=== PATIENT | male | born 1950 | race Two or more races ===

== ENCOUNTER 2021-08-29 11:07 | Inpatient (IN) | payer OTHER ==
[~2021-08-29] VITALS: Ht 182.9 cm; Wt 116.2 kg
[2021-08-29 13:30] LABS: Eosinophils # (auto) 0 10 ^3/uL (0-0.8); Hemoglobin 11.3 g/dL (13.5-17.5); White Blood Cell 5.2 10^3/uL (4.4-10.8)
[2021-08-29 13:31] LABS: Basophils # (auto) 0 10 ^3/uL (0-0.2); Basophils % (auto) 0.7 % (0.0-2.0); Hematocrit 35.4 % (41.0-53.0); Lymphocytes # (auto) 0.9 10 ^3/uL (0.4-5.4); Lymphocytes % (auto) 16.4 % (10.0-50.0); Mean Corpuscular Hemoglobin 24.3 pg (28.0-32.0); Mean Corpuscular Volume 75.9 fL (80.0-100.0); Monocytes # (auto) 0.4 10 ^3/uL (0-1.3); Monocytes % (auto) 8.2 % (0.0-12.0); Neutrophils # (auto) 3.9 10 ^3/uL (1.6-8.6); Neutrophils % (auto) 74.7 % (37.0-80.0); Nucleated Red Blood Cells % 0.1 %; Red Blood Cells 4.66 10^6/uL (4.5-5.90); Red Cell Distribution Width 16.9 % (11.8-14.3)
[2021-08-29 13:45] LABS: INR 1.13 (0.9-1.15); Partial Thromboplastin Time 27.8 sec (23.6-33.0)
[2021-08-29 13:46] LABS: Albumin 2.4 g/dL (3.4-5.0); Calcium 7.9 mg/dL (8.5-10.1); Potassium 3.6 mmol/L (3.5-5.1)
[2021-08-29 13:55] LABS: BUN/Creatinine Ratio 17.3; Bilirubin, Total 2.8 mg/dL (0.2-1.0); CRP High Sensitivity 11.1 mg/dL (< 0.3); Total Protein 7.6 g/dL (6.4-8.2)
[2021-08-29] MEDS ORDERED: MORPHINE SULFATE INJECTION 2 MG/ML SYRG IV PRN ×3 (17:45→19:00)
[2021-08-29] MEDS ORDERED: NITROGLYCERIN 0.4 MG SL TAB SL PRN ×2 (17:45→19:00)
[2021-08-29] MEDS ORDERED: DexAMETHasone SOD PHOS 10MG/1ML VIAL INJ IV ONE (18:15)
[2021-08-29] MEDS ORDERED: cefTRIAXone 1GM/50ML D5W 50 ML IV ONE (18:15)
[2021-08-29] MEDS ORDERED: AZITHROMYCIN 500MG/ 250ML 250 ML IV ONE (18:15)
[2021-08-29] MEDS ORDERED: ACETAMINOPHEN 500 MG TAB PO PRN (18:45)
[2021-08-29] MEDS ORDERED: hydrALAZINE HCL 20 MG/ML VL IV PRN (18:45)
[2021-08-29] MEDS ORDERED: REMDESIVIR PER PHARMACY 0 ML IV SCH (18:45)
[2021-08-29] MEDS ORDERED: PROMETHAZINE W/CODEINE 5 ML ORAL SYRUP PO PRN (19:00)
[2021-08-29] MEDS ORDERED: LORazepam 0.5 MG TAB PO PRN (19:00)
[2021-08-29] MEDS ORDERED: ALUM & MAG HYDROX-SIMETH LIQ(MAALOX) 30 ML PO PRN (19:00)
[2021-08-29] MEDS ORDERED: FAMOTIDINE (10MG/ML) 2ML VL IV ONE ×2 (19:00)
[2021-08-29] MEDS ORDERED: PROMETHAZINE W/CODEINE 5 ML ORAL SYRUP PO ONE (19:00)
[2021-08-29] MEDS ORDERED: ONDANSETRON HCL 4 MG/2 ML VIAL IV PRN (19:00)
[2021-08-29] MEDS ORDERED: HYDROcodone-ACET 5/325MG TAB PO PRN (19:00)
[2021-08-29] MEDS ORDERED: DOCUSATE SOD 100 MG CAP PO PRN (19:00)
[2021-08-29] MEDS ORDERED: ACETAMINOPHEN 325 MG TAB PO PRN (19:00)
[2021-08-29] MEDS: BUDESONIDE (INHALATION) 180 MCG IH IN SCH (19:14)
[2021-08-29] MEDS: ALBUTEROL SULF HFA 90MCG INH 200DOSE IN PRN (20:07)
[2021-08-29 20:15] VITALS: BP 133/79
[2021-08-29 20:30] VITALS: BP 133/79
[2021-08-29] MEDS ORDERED: REMDESIVIR 200 MG in NS 210ml LOADING DOSE ADULT IV ONE (20:30)
[2021-08-29 20:44] LABS: Thyroid Stimulating Hormone 0.58 uIU/mL (0.358-3.74)
[2021-08-29 20:56] VITALS: BP 127/68
[2021-08-29] MEDS ORDERED: FAMOTIDINE (10MG/ML) 2ML VL IV SCH (22:00)
[2021-08-29 22:14] VITALS: BP 133/79
[2021-08-29] MEDS: ATORVASTATIN 20 MG TAB PO SCH (22:25)
[2021-08-29] MEDS: POTASSIUM CHL 20 Meq TABLET PO SCH (22:25)
[2021-08-29] MEDS: ENOXAPARIN SOD 40 MG/0.4 ML SYRINGE SC SCH (22:26)
[2021-08-29] MEDS ORDERED: TERA5CAP42 PO (23:41)
[2021-08-29] MEDS ORDERED: OMEP-263 PO (23:41)
[2021-08-29] MEDS ORDERED: CARV12.544 PO (23:41)
[2021-08-29] MEDS ORDERED: MELA5TAB11 PO (23:41)
[2021-08-29] MEDS ORDERED: ASPI1TAB20 PO (23:41)
[2021-08-29] MEDS ORDERED: AMLO-496 PO (23:41)
[2021-08-30 05:53] VITALS: BP 119/69
[2021-08-30 06:03] LABS: Basophils # (auto) 0 10 ^3/uL (0-0.2); Eosinophils # (auto) 0 10 ^3/uL (0-0.8); Eosinophils % (auto) 0.2 % (0.0-7.0); Hemoglobin 10.8 g/dL (13.5-17.5); Mean Corpuscular Hemoglobin 23.9 pg (28.0-32.0); Red Blood Cells 4.51 10^6/uL (4.5-5.90); Red Cell Distribution Width 16.7 % (11.8-14.3); White Blood Cell 4.7 10^3/uL (4.4-10.8)
[2021-08-30] MEDS: FUROSEMIDE 20 MG/2 ML VIAL IV SCH ×2 (06:06→17:55)
[2021-08-30 06:23] LABS: INR 1.2 (0.9-1.15); Partial Thromboplastin Time 34.5 sec (23.6-33.0)
[2021-08-30 06:59] LABS: Basophils % (auto) 0.4 % (0.0-2.0); Hematocrit 34.3 % (41.0-53.0); Lymphocytes # (auto) 0.6 10 ^3/uL (0.4-5.4); Lymphocytes % (auto) 13.5 % (10.0-50.0); Mean Corpuscular Hgb Conc. 31.4 g/dL (32.0-36.0); Mean Corpuscular Volume 76.2 fL (80.0-100.0); Monocytes # (auto) 0.4 10 ^3/uL (0-1.3); Monocytes % (auto) 8.8 % (0.0-12.0); Neutrophils # (auto) 3.6 10 ^3/uL (1.6-8.6); Neutrophils % (auto) 77.1 % (37.0-80.0); Nucleated Red Blood Cells % 0.4 %
[2021-08-30] MEDS: BUDESONIDE (INHALATION) 180 MCG IH IN SCH ×2 (07:54→22:00)
[2021-08-30] MEDS: ALBUTEROL SULF HFA 90MCG INH 200DOSE IN PRN (07:54)
[2021-08-30 08:57] VITALS: BP 110/68
[2021-08-30] MEDS: ASPirin 81 mg TAB PO SCH (10:50)
[2021-08-30] MEDS: IVERMECTIN 3 MG TAB PO SCH (10:51)
[2021-08-30] MEDS: POTASSIUM CHL 20 Meq TABLET PO SCH ×2 (10:51→20:59)
[2021-08-30] MEDS: ZINC SULFATE 220mg CAP or TAB PO SCH (10:51)
[2021-08-30] MEDS: METOPROLOL SUCCINATE XL 50 MG TAB PO SCH (10:52)
[2021-08-30] MEDS: CHOLECALCIFEROL (VITD3) 2,000 UNIT CAP/TAB PO SCH (10:52)
[2021-08-30] MEDS: ASCORBIC ACID 1,000 MG TAB PO SCH (10:52)
[2021-08-30] MEDS: ENOXAPARIN SOD 40 MG/0.4 ML SYRINGE SC SCH ×2 (10:53→20:58)
[2021-08-30] MEDS: DexAMETHasone SOD PHOS 10MG/1ML VIAL INJ IV SCH (11:35)
[2021-08-30] MEDS: FAMOTIDINE (10MG/ML) 2ML VL IV SCH ×2 (11:35→20:59)
[2021-08-30] MEDS: AZITHROMYCIN 500MG/ 250ML 250 ML IV SCH (11:35)
[2021-08-30 13:00] VITALS: BP 105/60
[2021-08-30] MEDS ORDERED: VANCOMYCIN 1GM/250ML 250 ML IV ONE (13:30)
[2021-08-30] MEDS ORDERED: VANCOMYCIN PER PHARMACY 0 MG IV SCH (13:30)
[2021-08-30 13:44] LABS: Albumin 2.2 g/dL (3.4-5.0); Calcium 7.6 mg/dL (8.5-10.1)
[2021-08-30 14:28] LABS: BUN/Creatinine Ratio 23.7; Bilirubin, Total 2.6 mg/dL (0.2-1.0); Phosphorus 2.8 mg/dL (2.5-4.90); Total Protein 6.6 g/dL (6.4-8.2)
[2021-08-30] MEDS: REMDESIVIR 100mg 100 MG in SODIUM CHL 0.9% 230 ML IV SCH (16:29)
[2021-08-30 17:00] VITALS: BP 116/72
[2021-08-30] MEDS: TAMSULOSIN HYDROCHLORIDE 0.4 MG CAP PO SCH (17:55)
[2021-08-30 18:43] LABS: Urine Amorphous Crystal FEW /hpf (None Seen); Urine Bacteria NONE SEEN /hpf (None Seen); Urine Blood Negative /uL (Negative); Urine Mucus FEW (None Seen); Urine Specific Gravity 1.017 (1.001-1.035); Urine WBC 3 /hpf (0 - 3)
[2021-08-30 18:45] LABS: Alcohol, Urine < 3.0 mg/dL (0-10); Amphetamine Screen, Urine NEGATIVE (NEGATIVE); Barbiturate Scree,Urine NEGATIVE (NEGATIVE); Benzodiazephine Screen, Urine NEGATIVE (NEGATIVE); Cannabinoid Screen, Urine NEGATIVE (NEGATIVE); Cocaine Screen, Urine NEGATIVE (NEGATIVE); Opiate Scree,Urine POSITIVE (NEGATIVE); Phencyclidine Screen, Urine NEGATIVE (NEGATIVE)
[2021-08-30] MEDS: ATORVASTATIN 20 MG TAB PO SCH (20:58)
[2021-08-30 21:45] VITALS: BP 118/67
[2021-08-31] MEDS: VANCOMYCIN 1GM/250ML 250 ML IV SCH ×3 (00:27→20:28)
[2021-08-31 06:02] VITALS: BP 111/63
[2021-08-31] MEDS: FUROSEMIDE 20 MG/2 ML VIAL IV SCH ×2 (06:11→18:04)
[2021-08-31 06:36] LABS: Potassium 4.3 mmol/L (3.5-5.1)
[2021-08-31 06:42] LABS: Albumin 2.2 g/dL (3.4-5.0); BUN/Creatinine Ratio 28.7; Bilirubin, Total 1.9 mg/dL (0.2-1.0); Total Protein 6.6 g/dL (6.4-8.2)
[2021-08-31] MEDS: ALBUTEROL SULF HFA 90MCG INH 200DOSE IN PRN (07:09)
[2021-08-31] MEDS: BUDESONIDE (INHALATION) 180 MCG IH IN SCH ×2 (07:09→22:26)
[2021-08-31 08:45] VITALS: BP 103/71
[2021-08-31] MEDS: DexAMETHasone SOD PHOS 10MG/1ML VIAL INJ IV SCH (08:52)
[2021-08-31] MEDS: AZITHROMYCIN 500MG/ 250ML 250 ML IV SCH (08:52)
[2021-08-31] MEDS: FAMOTIDINE (10MG/ML) 2ML VL IV SCH ×2 (08:52→20:42)
[2021-08-31] MEDS: ZINC SULFATE 220mg CAP or TAB PO SCH (08:53)
[2021-08-31] MEDS: ASPirin 81 mg TAB PO SCH (08:53)
[2021-08-31] MEDS: IVERMECTIN 3 MG TAB PO SCH (08:54)
[2021-08-31] MEDS: POTASSIUM CHL 20 Meq TABLET PO SCH ×2 (08:54→20:42)
[2021-08-31] MEDS: METOPROLOL SUCCINATE XL 50 MG TAB PO SCH (08:55)
[2021-08-31] MEDS: CHOLECALCIFEROL (VITD3) 2,000 UNIT CAP/TAB PO SCH (08:56)
[2021-08-31] MEDS: ASCORBIC ACID 1,000 MG TAB PO SCH (08:56)
[2021-08-31] MEDS: ENOXAPARIN SOD 40 MG/0.4 ML SYRINGE SC SCH ×2 (10:37→20:42)
[2021-08-31 12:47] VITALS: BP 121/76
[2021-08-31] MEDS: REMDESIVIR 100mg 100 MG in SODIUM CHL 0.9% 230 ML IV SCH (15:55)
[2021-08-31 17:00] VITALS: BP 121/81
[2021-08-31] MEDS: TAMSULOSIN HYDROCHLORIDE 0.4 MG CAP PO SCH (18:05)
[2021-08-31] MEDS: ATORVASTATIN 20 MG TAB PO SCH (20:42)
[2021-08-31 22:13] VITALS: BP 124/73
[2021-09-01 05:54] VITALS: BP 120/70
[2021-09-01] MEDS: VANCOMYCIN 1GM/250ML 250 ML IV SCH ×2 (06:04→16:00)
[2021-09-01] MEDS: FUROSEMIDE 20 MG/2 ML VIAL IV SCH (06:04)
[2021-09-01 08:00] VITALS: BP 106/65
[2021-09-01 08:26] LABS: Basophils # (auto) 0 10 ^3/uL (0-0.2); Eosinophils # (auto) 0 10 ^3/uL (0-0.8); Eosinophils % (auto) 0.1 % (0.0-7.0); Hemoglobin 10.4 g/dL (13.5-17.5); Monocytes # (auto) 0.7 10 ^3/uL (0-1.3); Nucleated Red Blood Cells % 0.1 %
[2021-09-01 08:29] LABS: Basophils % (auto) 0.1 % (0.0-2.0); Lymphocytes # (auto) 0.6 10 ^3/uL (0.4-5.4); Lymphocytes % (auto) 6.3 % (10.0-50.0); Mean Corpuscular Hgb Conc. 31.4 g/dL (32.0-36.0); Neutrophils # (auto) 7.6 10 ^3/uL (1.6-8.6); Neutrophils % (auto) 85.5 % (37.0-80.0); Red Blood Cells 4.33 10^6/uL (4.5-5.90); Red Cell Distribution Width 16.9 % (11.8-14.3); White Blood Cell 8.8 10^3/uL (4.4-10.8)
[2021-09-01 08:40] LABS: Albumin 2.2 g/dL (3.4-5.0); Calcium 7.9 mg/dL (8.5-10.1)
[2021-09-01 08:45] LABS: BUN/Creatinine Ratio 30.6; Bilirubin, Total 1.2 mg/dL (0.2-1.0); Total Protein 6.6 g/dL (6.4-8.2)
[2021-09-01 08:46] LABS: Mean Corpuscular Hemoglobin 23.9 pg (28.0-32.0); Mean Corpuscular Volume 76.2 fL (80.0-100.0)
[2021-09-01 09:00] VITALS: BP 106/65
[2021-09-01] MEDS: ALBUTEROL SULF HFA 90MCG INH 200DOSE IN PRN ×2 (09:20→18:23)
[2021-09-01] MEDS: BUDESONIDE (INHALATION) 180 MCG IH IN SCH ×2 (10:00→18:23)
[2021-09-01] MEDS: ZINC SULFATE 220mg CAP or TAB PO SCH (10:00)
[2021-09-01] MEDS: DexAMETHasone SOD PHOS 10MG/1ML VIAL INJ IV SCH (11:30)
[2021-09-01] MEDS: FAMOTIDINE (10MG/ML) 2ML VL IV SCH ×2 (11:30→21:21)
[2021-09-01] MEDS: ASPirin 81 mg TAB PO SCH (11:31)
[2021-09-01] MEDS: IVERMECTIN 3 MG TAB PO SCH (11:31)
[2021-09-01] MEDS: AZITHROMYCIN 500MG/ 250ML 250 ML IV SCH (11:31)
[2021-09-01] MEDS: ASCORBIC ACID 1,000 MG TAB PO SCH (11:32)
[2021-09-01] MEDS: CHOLECALCIFEROL (VITD3) 2,000 UNIT CAP/TAB PO SCH (11:32)
[2021-09-01] MEDS: METOPROLOL SUCCINATE XL 50 MG TAB PO SCH (11:32)
[2021-09-01] MEDS: ENOXAPARIN SOD 40 MG/0.4 ML SYRINGE SC SCH ×2 (11:33→21:23)
[2021-09-01] MEDS: POTASSIUM CHL 20 Meq TABLET PO SCH ×2 (11:34→21:23)
[2021-09-01] MEDS: REMDESIVIR 100mg 100 MG in SODIUM CHL 0.9% 230 ML IV SCH (16:20)
[2021-09-01 16:56] VITALS: BP 136/77
[2021-09-01] MEDS: Ensure HIGH Protein Chocolate 8oz Bottle PO SCH (18:00)
[2021-09-01] MEDS: TAMSULOSIN HYDROCHLORIDE 0.4 MG CAP PO SCH (18:00)
[2021-09-01] MEDS: ATORVASTATIN 20 MG TAB PO SCH (21:23)
[2021-09-01 22:00] VITALS: BP 111/67
[2021-09-02] VITALS (7 sets, daily range): BP systolic 106–136; BP diastolic 57–74
[2021-09-02] MEDS: VANCOMYCIN 1GM/250ML 250 ML IV SCH ×3 (00:38→16:00)
[2021-09-02] MEDS: BUDESONIDE (INHALATION) 180 MCG IH IN SCH ×2 (05:51→21:45)
[2021-09-02] MEDS: ALBUTEROL SULF HFA 90MCG INH 200DOSE IN PRN ×2 (05:51→21:45)
[2021-09-02 06:47] LABS: Basophils # (auto) 0.1 10 ^3/uL (0-0.2); Basophils % (auto) 0.7 % (0.0-2.0); Eosinophils # (auto) 0 10 ^3/uL (0-0.8); Eosinophils % (auto) 0.4 % (0.0-7.0); Hematocrit 36.4 % (41.0-53.0); Hemoglobin 11.2 g/dL (13.5-17.5); Lymphocytes # (auto) 0.8 10 ^3/uL (0.4-5.4); Lymphocytes % (auto) 8.7 % (10.0-50.0); Mean Corpuscular Hemoglobin 23.7 pg (28.0-32.0); Mean Corpuscular Hgb Conc. 30.6 g/dL (32.0-36.0); Mean Corpuscular Volume 77.4 fL (80.0-100.0); Monocytes # (auto) 0.8 10 ^3/uL (0-1.3); Monocytes % (auto) 7.9 % (0.0-12.0); Neutrophils % (auto) 82.3 % (37.0-80.0); Nucleated Red Blood Cells % 0.1 %; Red Blood Cells 4.71 10^6/uL (4.5-5.90); Red Cell Distribution Width 16.9 % (11.8-14.3); White Blood Cell 9.7 10^3/uL (4.4-10.8)
[2021-09-02 07:09] LABS: Albumin 2.2 g/dL (3.4-5.0); Calcium 7.6 mg/dL (8.5-10.1); Magnesium 3.1 mg/dL (1.6-2.6); Potassium 4.4 mmol/L (3.5-5.1)
[2021-09-02 07:12] LABS: BUN/Creatinine Ratio 32.4; Total Protein 6.4 g/dL (6.4-8.2)
[2021-09-02] MEDS: METOPROLOL SUCCINATE XL 50 MG TAB PO SCH (10:00)
[2021-09-02] MEDS: ASCORBIC ACID 1,000 MG TAB PO SCH (10:00)
[2021-09-02] MEDS: Ensure HIGH Protein Chocolate 8oz Bottle PO SCH ×3 (12:00→17:27)
[2021-09-02] MEDS: FAMOTIDINE (10MG/ML) 2ML VL IV SCH ×2 (15:03→21:42)
[2021-09-02] MEDS: ZINC SULFATE 220mg CAP or TAB PO SCH (15:03)
[2021-09-02] MEDS: DexAMETHasone SOD PHOS 10MG/1ML VIAL INJ IV SCH (15:03)
[2021-09-02] MEDS: ASPirin 81 mg TAB PO SCH (15:04)
[2021-09-02] MEDS: POTASSIUM CHL 20 Meq TABLET PO SCH ×2 (15:04→21:42)
[2021-09-02] MEDS: IVERMECTIN 3 MG TAB PO SCH (15:05)
[2021-09-02] MEDS: CHOLECALCIFEROL (VITD3) 2,000 UNIT CAP/TAB PO SCH (15:05)
[2021-09-02] MEDS: ENOXAPARIN SOD 40 MG/0.4 ML SYRINGE SC SCH ×2 (15:05→21:42)
[2021-09-02] MEDS: REMDESIVIR 100mg 100 MG in SODIUM CHL 0.9% 230 ML IV SCH (15:05)
[2021-09-02] MEDS: TAMSULOSIN HYDROCHLORIDE 0.4 MG CAP PO SCH (17:41)
[2021-09-02] MEDS: ATORVASTATIN 20 MG TAB PO SCH (21:42)
[2021-09-03] MEDS: VANCOMYCIN 1GM/250ML 250 ML IV SCH ×2 (02:00→21:44)
[2021-09-03] MEDS: ALBUTEROL SULF HFA 90MCG INH 200DOSE IN PRN (06:51)
[2021-09-03] MEDS: BUDESONIDE (INHALATION) 180 MCG IH IN SCH ×2 (06:51→22:00)
[2021-09-03 08:45] VITALS: BP 133/74
[2021-09-03] MEDS: Ensure HIGH Protein Chocolate 8oz Bottle PO SCH ×3 (08:45→17:48)
[2021-09-03] MEDS: IVERMECTIN 3 MG TAB PO SCH (10:44)
[2021-09-03] MEDS: CHOLECALCIFEROL (VITD3) 2,000 UNIT CAP/TAB PO SCH (10:44)
[2021-09-03] MEDS: METOPROLOL SUCCINATE XL 50 MG TAB PO SCH (10:44)
[2021-09-03] MEDS: ASPirin 81 mg TAB PO SCH (10:44)
[2021-09-03] MEDS: POTASSIUM CHL 20 Meq TABLET PO SCH ×2 (10:44→21:15)
[2021-09-03] MEDS: ZINC SULFATE 220mg CAP or TAB PO SCH (10:45)
[2021-09-03] MEDS: FAMOTIDINE (10MG/ML) 2ML VL IV SCH ×2 (10:45→21:16)
[2021-09-03] MEDS: ENOXAPARIN SOD 40 MG/0.4 ML SYRINGE SC SCH ×2 (10:45→21:15)
[2021-09-03] MEDS: DexAMETHasone SOD PHOS 10MG/1ML VIAL INJ IV SCH (10:45)
[2021-09-03] MEDS: ASCORBIC ACID 1,000 MG TAB PO SCH (10:45)
[2021-09-03 12:54] VITALS: BP 134/74
[2021-09-03 17:00] VITALS: BP 134/70
[2021-09-03] MEDS: TAMSULOSIN HYDROCHLORIDE 0.4 MG CAP PO SCH (17:59)
[2021-09-03] MEDS: ATORVASTATIN 20 MG TAB PO SCH (21:15)
[2021-09-03 22:00] VITALS: BP 127/70
[2021-09-04 05:00] VITALS: BP 126/64
[2021-09-04 09:00] VITALS: BP 140/71
[2021-09-04] MEDS: BUDESONIDE (INHALATION) 180 MCG IH IN SCH ×2 (09:23→22:05)
[2021-09-04] MEDS: ALBUTEROL SULF HFA 90MCG INH 200DOSE IN PRN ×2 (09:23→22:05)
[2021-09-04] MEDS: METOPROLOL SUCCINATE XL 50 MG TAB PO SCH (10:00)
[2021-09-04] MEDS: DexAMETHasone SOD PHOS 10MG/1ML VIAL INJ IV SCH (10:24)
[2021-09-04] MEDS: Ensure HIGH Protein Chocolate 8oz Bottle PO SCH ×3 (10:24→17:41)
[2021-09-04] MEDS: FAMOTIDINE (10MG/ML) 2ML VL IV SCH ×2 (10:24→21:12)
[2021-09-04] MEDS: ZINC SULFATE 220mg CAP or TAB PO SCH (10:24)
[2021-09-04] MEDS: ASPirin 81 mg TAB PO SCH (10:24)
[2021-09-04] MEDS: CHOLECALCIFEROL (VITD3) 2,000 UNIT CAP/TAB PO SCH (10:25)
[2021-09-04] MEDS: POTASSIUM CHL 20 Meq TABLET PO SCH ×2 (10:25→21:11)
[2021-09-04] MEDS: ASCORBIC ACID 1,000 MG TAB PO SCH (10:25)
[2021-09-04] MEDS: ENOXAPARIN SOD 40 MG/0.4 ML SYRINGE SC SCH ×2 (10:25→21:11)
[2021-09-04 12:12] LABS: BUN/Creatinine Ratio 18.5; Potassium 4.5 mmol/L (3.5-5.1)
[2021-09-04 13:00] VITALS: BP 123/65
[2021-09-04 14:03] VITALS: BP 140/71
[2021-09-04] MEDS: VANCOMYCIN 1GM/250ML 250 ML IV SCH (15:30)
[2021-09-04 17:00] VITALS: BP 125/52
[2021-09-04] MEDS: TAMSULOSIN HYDROCHLORIDE 0.4 MG CAP PO SCH (17:41)
[2021-09-04] MEDS: ATORVASTATIN 20 MG TAB PO SCH (21:11)
[2021-09-05 02:53] VITALS: BP 125/52
[2021-09-05 05:00] VITALS: BP 129/73
[2021-09-05] MEDS: ALBUTEROL SULF HFA 90MCG INH 200DOSE IN PRN (05:56)
[2021-09-05] MEDS: BUDESONIDE (INHALATION) 180 MCG IH IN SCH (05:56)
[2021-09-05] MEDS: VANCOMYCIN 1GM/250ML 250 ML IV SCH (06:33)
[2021-09-05] MEDS: Ensure HIGH Protein Chocolate 8oz Bottle PO SCH ×2 (08:00→12:06)
[2021-09-05 09:00] VITALS: BP 129/70
[2021-09-05] MEDS: FAMOTIDINE (10MG/ML) 2ML VL IV SCH (10:29)
[2021-09-05] MEDS: CHOLECALCIFEROL (VITD3) 2,000 UNIT CAP/TAB PO SCH (10:30)
[2021-09-05] MEDS: DexAMETHasone SOD PHOS 10MG/1ML VIAL INJ IV SCH (10:30)
[2021-09-05] MEDS: ENOXAPARIN SOD 40 MG/0.4 ML SYRINGE SC SCH (10:30)
[2021-09-05] MEDS: ASPirin 81 mg TAB PO SCH (10:30)
[2021-09-05] MEDS: POTASSIUM CHL 20 Meq TABLET PO SCH (10:31)
[2021-09-05] MEDS: ASCORBIC ACID 1,000 MG TAB PO SCH (10:31)
[2021-09-05] MEDS: ZINC SULFATE 220mg CAP or TAB PO SCH (10:31)
[2021-09-05] MEDS: METOPROLOL SUCCINATE XL 50 MG TAB PO SCH (12:15)
[2021-09-05 12:38] VITALS: BP 141/78
== END 2021-09-05 20:52 | disposition home or self-care (01) | DRG 177 ==
LOC: EDBD 11:07 → ER 11:07 → TELE 17:40 → TELE-EAST 18:43 → TELE-E-ADS 08-31 12:34 → TELE-EAST 09-04 20:59
PROVIDERS: ADMIT Hospitalist; ATTEND Internal Medicine Geriatric Medicine
PROC: XW033E5 Introduction of Remdesivir Anti-infective into Peripheral Vein, Percutaneous Approach, New Technology Group 5 (ICD-10-PCS; principal; 2021-08-29)
DX: U07.1 COVID-19 (principal); G93.41 Metabolic encephalopathy; J12.82 Pneumonia due to coronavirus disease 2019; J96.01 Acute respiratory failure with hypoxia; D89.839 Cytokine release syndrome, grade unspecified; I10 Essential (primary) hypertension; E78.5 Hyperlipidemia, unspecified; E66.01 Morbid (severe) obesity due to excess calories; Z68.34 Body mass index [BMI] 34.0-34.9, adult; Z82.49 Family history of ischemic heart disease and other diseases of the circulatory system
CPT/HCPCS: 36415; 36600; 70450; 71045; 80048; 80053; 80202; 80307; 81001; 82306; 82728; 82805; 83036; 83605; 83615; 83735; 83880; 84100; 84443; 84484; 85025; 85379; 85610; 85730; 86141; 87040; 87077; 87086; 87186; 87426; 93005; 93306; 94640; 99291; G0378; J0696; J1100; J3490